=== PATIENT | male | born 1985 | race Caucasian/White ===

== ENCOUNTER 2022-01-05 08:59 | Emergency (ER) | payer OTHER ==
[2022-01-05 09:05] VITALS: TEMP 97.9
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
[2022-01-05] MEDS ORDERED: HYDROcodone/APAP 5-325MG 1 EACH TAB PO STA (10:48)
--- NOTE | 2022-01-05 11:23 | US ---
EXAMINATION TYPE: US groin LT DATE OF EXAM: 01/05/2022 COMPARISON: NONE CLINICAL HISTORY: Left groin pain. The left groin was scanned over area of pain as pointed out by patient. Valsalva maneuver was utilize d. There is no obvious hernia seen, no fluid collection or enlarged lymph nodes noted. IMPRESSION: As above. Source of patient's pain not identified.
[2022-01-05 11:58] VITALS: BP 147/105; PULSE 91; RESP 15
== END 2022-01-05 11:58 | disposition home or self-care (01) ==
LOC: EC 08:59
DX: T23.201A Burn of second degree of right hand, unspecified site, initial encounter (principal); T31.0 Burns involving less than 10% of body surface; R10.2 Pelvic and perineal pain; F12.90 Cannabis use, unspecified, uncomplicated
CPT/HCPCS: 16020; 99285